=== PATIENT | female | born 1985 | race Two or more races ===

== ENCOUNTER 2017-06-04 10:23 | Emergency (ER) | payer OTHER ==
--- NOTE | ~2017-06-04 | CR72 ---
[facility] A Service [facility] RADIOLOGY TEXT RESULTS PATIENT: ROSARIO JHA LOCATION: [facility] : [birth year] UNIT #: [id number] AGE: [address]: Roxann Quintanilla MD SEX: F ORDER DR: [id number] [facility]. [place], [place] [address] [id number] MR#: [id number] Acc #: [id number] NAME: ROSARIO JHA : 1985 SEX: F STUDY DATE/TIME: 06/04/2017 11:44 UNIT: [facility] ROOM: STUDY DESCRIPTION: CR Chest Single View Portable Attending Physician: Roxann Quintanilla M.D. Ordering Physician: Roxann Quintanilla M.D. Primary Care Physician: No Primary Care Physician MEDICAL IMAGING REPORT This report is preliminary unless electronic signature is present EXAM Chest, portable, 06/04/2017, 1144 hours. CLINICAL HISTORY 31-year-old woman complaining of left-sided chest pain and shortness of air this morning. COMPARISON None FINDINGS Upright PA and lateral views of the chest demonstrate heart size within normal limits. Mediastinal, hilar, and aortic contours are normal. The lungs are well expanded. There are benign calcified granulomata. There is no acute pulmonary density or pleural effusion. IMPRESSION Benign calcified granulomatous changes are present. There are no acute cardiopulmonary findings. Dictated by... Salud Rutledge M.D. THIS IS AN ELECTRONICALLY VERIFIED REPORT Salud Rutledge M.D. at 06/04/2017 2:30 PM LIA/sonya TD: 06/04/2017 13:47 JOB #: [id number] MEDICAL IMAGING REPORT [facility] A Service [facility] RADIOLOGY TEXT RESULTS PATIENT: ROSARIO JHA LOCATION: [facility] : [birth year] UNIT #: [id number] AGE: [address]: Roxann Quintanilla MD SEX: F ORDER DR: Page 1 of 1 COPY
--- NOTE | ~2017-06-04 | EKG ---
PATIENT: CRISTEL FRANCES ALBION UNIT #: [id number] Ventricular Rate: 76 BPM Atrial Rate: 76 BPM P-R Interval: 180 ms QRS Duration: 80 ms Q-T Interval: 384 ms QTC Calculation(Bezet): 432 ms P [place]: 12 degrees Calculated R [place]: 12 degrees Calculated T [place]: 11 degrees Diagnosis Line: Normal sinus rhythm Diagnosis Line: Normal ECG Diagnosis Line: Diagnosis Line: Confirmed by ISIDRO NAVARRO MD ([id number]) on 06/05/2017 Diagnosis Line: 8:34:17 AM INTERPRETING MD: MELANIE CARNEY
[2017-06-04 11:14] LABS: POC - CKMB <1.0 ng/mL (0.0-7.9); POC - TROPONIN <0.05 ng/mL (<=0.05)
[2017-06-04 12:08] LABS: BASOPHIL% 0.6 % (0-2.5); EOSINOPHIL# 0.3 X10e3 (0-0.7); EOSINOPHIL% 4.3 % (0.0-7.0); HEMATOCRIT 39.9 % (35.0-45.0); HEMOGLOBIN 13.1 gm/dL (12.0-16.0); LYMPHOCYTE# 2.3 X10e3 (1.0-3.5); LYMPHOCYTE% 37.2 % (17.0-45.0); MEAN CELL VOLUME 82.7 FL (83-96); MEAN CORPUSCULAR HEMOGLOBIN 27.1 PG (28-34); MEAN CORPUSCULAR HGB CONC 32.8 g/dL (30-36); MEAN PLATELET VOLUME 10.4 FL (6.5-11.5); MONOCYTE# 0.5 X10e3 (0-1.0); NEUTROPHIL# 3.1 X10e3 (1.5-7.1); NEUTROPHIL% 49.9 % (40-75); PLATELET COUNT 295 X10e3 (140-420); RED BLOOD COUNT 4.83 X10e (3.90-5.30); RED CELL DISTRIBUTION WIDTH 14.3 % (11.0-15.5); WHITE BLOOD COUNT 6.1 X10e3 (4.0-10.5)
[2017-06-04 12:10] LABS: DIFF IND NO
[2017-06-04 12:36] LABS: CALCIUM SERUM 8.9 mg/dL (8.4-10.2); CREATININE SERUM 0.5 mg/dL (0.6-1.4); GLOM FILT RATE Estimated 129.9 mL/min (>60); POTASSIUM 4.1 mmol/L (3.5-5.1)
== END 2017-06-04 13:40 | disposition home or self-care (01) ==
LOC: CED 10:23
PROVIDERS: Emergency Medicine
DX: R07.89 Other chest pain (principal)
CPT/HCPCS: 71010; 80048; 82553; 83880; 84484; 85025; 93005; 99285